=== PATIENT | female | born 1985 | race Caucasian/White ===

== ENCOUNTER 2021-05-18 11:33 | Outpatient (CLI) | payer OTHER, SELFPAY ==
--- NOTE | ~2021-05-18 | CT_ITS ---
EXAMINATION: CT abdomen pelvis w con INDICATION: Low back pain TECHNIQUE: Computed tomographic images of the abdomen and pelvis were obtained after the administrati on of 100 cc of Omnipaque 350 intravenous contrast. The dose-length product (DLP) was 176.73 mGy-cm. Automated exposure control and iterative reconstruction technique were employed. COMPARISON: None available FINDINGS: The lung bases are clear. The heart size is normal. The liver, spleen, pancreas, gallbladde r, and adrenal glands are normal. The kidneys are unremarkable. There is mild urothelial enhancement of the renal pelves and proximal ureters as well as the urinary bladder wall. No pathologically enlar ged abdominal or pelvic lymph nodes are identified. There is no free intraperitoneal gas or evidence of bowel obstruction. The appendix is normal. Small amount of free fluid is present in the pelvis. Th ere is a corpus luteum of the right ovary. IMPRESSION: 1. Mild urothelial enhancement in the kidneys and ureters as well as the urinary bladder which could reflect urinary tract infection. 2. Small amount of free fluid in the pelvis, likely physiologic. Reviewed, dictated and finalized at location A. IMPRESSION: 1. Mild urothelial enhancement in the kidneys and ureters as well as the urinar y bladder which could reflect urinary tract infection. 2. Small amount of free fluid in the pelvis, likely physiologic.
== END 2021-05-18 11:34 | disposition home or self-care (01) ==
LOC: ANHIMG 11:45
PROVIDERS: PCP Internal Medicine; Visit Provider Obstetrics & Gynecology
DX: M54.5 Low back pain (principal)
CPT/HCPCS: 74177; Q9967